=== PATIENT | male | born 1965 | race Caucasian/White ===

== ENCOUNTER 2017-02-08 13:18 | Emergency (ER) | payer MEDICARE ==
[~2017-02-08] VITALS: Ht 182.9 cm; Wt 97.5 kg
[~2017-02-08 13:18] MED LIST: FURO20 PO; GABA-531 PO; LACT30L PO; MAGOX PO; RISP.5 PO; SERT50TA12 PO; TRAZ-147 PO
[2017-02-08] MEDS ORDERED: HYDROCODONE/ACETAMINOPHEN 5-325 MG TABLET PO ONE (19:15)
[2017-02-08 19:45] VITALS: BP 125/84
== END 2017-02-08 21:27 | disposition home or self-care (01) ==
LOC: EMS 13:20
DX: S82.892A Other fracture of left lower leg, initial encounter for closed fracture (principal); S91.012A Laceration without foreign body, left ankle, initial encounter; S80.02XA Contusion of left knee, initial encounter; F17.210 Nicotine dependence, cigarettes, uncomplicated; I10 Essential (primary) hypertension; K21.9 Gastro-esophageal reflux disease without esophagitis; G20 Parkinson's disease; V49.88XA Car occupant (driver) (passenger) injured in other specified transport accidents, initial encounter; Y93.89 Activity, other specified; Y92.89 Other specified places as the place of occurrence of the external cause; Y99.8 Other external cause status
CPT/HCPCS: 29515; 99284; 99406

== ENCOUNTER 2017-07-06 08:19 | Inpatient (IN) | payer MEDICARE ==
[~2017-07-06] VITALS: Ht 182.9 cm; Wt 88.0 kg
[2017-07-06] MEDS ORDERED: LORazepam 2 MG/ML VIAL IM ONE (09:00)
[2017-07-06 09:32] LABS: BASOPHILS # (AUTO) 0.05 K/uL (0.00-0.20); BASOPHILS % (AUTO) 1.5 % (0.0-2.0); EOSINOPHILS # (AUTO) 0.04 K/uL (0.00-0.70); EOSINOPHILS % (AUTO) 1.19 % (1.0-6.0); HEMOGLOBIN 11.4 g/dL (13.5-17.5); MEAN CORPUSCULAR HEMOGLOBIN 31.9 pg (26.0-34.0); MEAN CORPUSCULAR HGB CONC 34.5 G/dL (31.0-37.0); MEAN CORPUSCULAR VOLUME 93 fL (80-100); MONOCYTES # (AUTO) 0.3 K/uL (0.1-1.0); NEUTROPHILS % (AUTO) 59.3 % (40.0-70.0); PLATELET COUNT (AUTO) 84 K/uL (150-450); RED BLOOD CELL COUNT(AUTO) 3.57 MIL/uL (4.50-5.90); RED CELL DISTRIBUTION WIDTH 15.8 % (11.5-14.5); WHITE BLOOD COUNT (AUTO) 3.3 K/uL (4.5-11.0)
[2017-07-06 10:25] LABS: ANION GAP 11 mmol/L (8-16); CALCIUM, TOTAL 8.5 mg/dL (8.8-10.5); CARBON DIOXIDE 22 mmol/L (22-29); CHLORIDE 106 mmol/L (98-107); CREATININE 0.74 mg/dL (0.60-1.30); GLOMERULAR FILTR. RATE CALC > 60 mL/min (>60); POTASSIUM 3.5 mmol/L (3.5-5.1); SODIUM SERUM 139 mmol/L (136-145); UREA NITROGEN, BLOOD 10 mg/dL (7-18)
[2017-07-06 10:31] LABS: ALANINE AMINOTRANSFERASE 14 U/L (12-78); ASPARTATE AMINOTRANSFERASE 19 U/L (15-37); BILIRUBIN,TOTAL 1.2 mg/dL (0.1-1.0); TOTAL PROTEIN, SERUM 7.4 g/dL (6.4-8.2)
[2017-07-06 12:43] LABS: APPEARANCE,URINE CLEAR (CLEAR); GLUCOSE, URINE (UA) NEGATIVE (NEGATIVE); KETONES,URINE NEGATIVE (NEGATIVE); LEUKOCYTE ESTERASE ,URINE NEGATIVE (NEGATIVE); OCCULT BLOOD,URINE MODERATE (NEGATIVE); PROTEIN,URINE NEGATIVE (NEGATIVE)
[2017-07-06] MEDS ORDERED: IBUPROFEN 400 MG TABLET PO ONE (12:45)
[2017-07-06 12:47] LABS: ADD UA MICROSCOPIC YES
[2017-07-06 12:49] LABS: WBC,URINE 0-2 /HPF (0-5)
[2017-07-06 12:50] LABS: SQUAMOUS EPITHELIAL CELL,UR Few /LPF (None Seen)
[2017-07-06 14:15] VITALS: BP 141/85
[2017-07-06 16:07] VITALS: BP 122/66
[2017-07-06 18:42] VITALS: BP 140/82
[2017-07-06] MEDS: IBUPROFEN 600 MG TABLET PO PRN (18:42)
[2017-07-06] MEDS: LORazepam 2 MG TABLET PO PRN ×2 (18:42→23:01)
[2017-07-06] MEDS: ZOLPIDEM TARTRATE 10 MG TABLET PO PRN (22:14)
[2017-07-07] VITALS (7 sets, daily range): BP systolic 133–169; BP diastolic 73–93
[2017-07-07] MEDS: IBUPROFEN 600 MG TABLET PO PRN ×2 (00:59→07:00)
[2017-07-07] MEDS: HALOPERIDOL 5 MG TABLET PO PRN ×2 (01:39→12:33)
[2017-07-07] MEDS: LORazepam 2 MG TABLET PO PRN ×3 (03:14→18:18)
[2017-07-07] MEDS: TraMADol HCL 50 MG TABLET PO PRN ×2 (08:21→18:18)
[2017-07-07] MEDS ORDERED: CloNIDine HCL 0.1 MG TABLET PO ONE (13:15)
[2017-07-07] MEDS: CloNIDine HCL 0.1 MG TABLET PO SCH (18:42)
[2017-07-07] MEDS: TraZODone HCL 100 MG TABLET PO SCH (20:30)
[2017-07-07] MEDS: RisperiDONE 0.5 MG TABLET PO SCH (20:30)
[2017-07-08] VITALS (7 sets, daily range): BP systolic 97–143; BP diastolic 54–79
[2017-07-08] MEDS: IBUPROFEN 600 MG TABLET PO PRN (00:16)
[2017-07-08] MEDS: LORazepam 2 MG TABLET PO PRN (01:41)
[2017-07-08 05:58] LABS: GLUCOSE,POINT OF CARE 73 MG/DL (70-110)
[2017-07-08] MEDS: CloNIDine HCL 0.1 MG TABLET PO SCH ×2 (09:00→16:02)
[2017-07-08] MEDS: SERTRALINE HCL 50 MG TABLET PO SCH (09:22)
[2017-07-08] MEDS: TraMADol HCL 50 MG TABLET PO PRN (16:02)
[2017-07-08] MEDS: TraZODone HCL 100 MG TABLET PO SCH (23:08)
[2017-07-08] MEDS: RisperiDONE 0.5 MG TABLET PO SCH (23:09)
[2017-07-09] VITALS (8 sets, daily range): BP systolic 105–143; BP diastolic 61–80
[2017-07-09] MEDS: LORazepam 2 MG TABLET PO PRN (06:25)
[2017-07-09] MEDS: SERTRALINE HCL 50 MG TABLET PO SCH (09:21)
[2017-07-09] MEDS: CloNIDine HCL 0.1 MG TABLET PO SCH ×2 (09:21→16:24)
[2017-07-09 09:54] LABS: CHOL/HDL RATIO 3.2 (4.2-7.3)
[2017-07-09] MEDS: TraZODone HCL 100 MG TABLET PO SCH (20:32)
[2017-07-09] MEDS: RisperiDONE 0.5 MG TABLET PO SCH (20:32)
[2017-07-09] MEDS: TraMADol HCL 50 MG TABLET PO PRN (21:58)
[2017-07-10 06:15] VITALS: BP 156/83
[2017-07-10] MEDS: TraMADol HCL 50 MG TABLET PO PRN (06:23)
[2017-07-10 08:03] VITALS: BP 133/62
[2017-07-10 08:31] LABS: BASOPHILS % (AUTO) 0.3 % (0.0-2.0); EOSINOPHILS % (AUTO) 2.1 % (1.0-6.0); HEMATOCRIT 36.1 % (41-53); HEMOGLOBIN 12.3 g/dL (13.5-17.5); LYMPHOCYTES # (AUTO) 1.6 K/uL (1.0-4.8); LYMPHOCYTES % (AUTO) 31.9 % (22.0-44.0); MEAN CORPUSCULAR HEMOGLOBIN 32.1 pg (26.0-34.0); MEAN CORPUSCULAR HGB CONC 34.1 G/dL (31.0-37.0); MEAN CORPUSCULAR VOLUME 94 fL (80-100); MONOCYTES # (AUTO) 0.7 K/uL (0.1-1.0); MONOCYTES % (AUTO) 13.6 % (2.0-9.0); NEUTROPHILS # (AUTO) 2.6 K/uL (1.8-7.7); NEUTROPHILS % (AUTO) 52.1 % (40.0-70.0); PLATELET COUNT (AUTO) 120 K/uL (150-450); RED BLOOD CELL COUNT(AUTO) 3.84 MIL/uL (4.50-5.90); RED CELL DISTRIBUTION WIDTH 17.1 % (11.5-14.5)
[2017-07-10 08:37] LABS: RBC MORPHOLOGY COMMENT ABNORMAL RBC MORPH
[2017-07-10] MEDS: SERTRALINE HCL 50 MG TABLET PO SCH (09:04)
[2017-07-10] MEDS: CloNIDine HCL 0.1 MG TABLET PO SCH ×2 (09:04→16:49)
[2017-07-10 09:21] LABS: ALANINE AMINOTRANSFERASE 22 U/L (12-78); ALBUMIN 2.3 g/dL (3.4-5.0); ANION GAP 9 mmol/L (8-16); ASPARTATE AMINOTRANSFERASE 34 U/L (15-37); BILIRUBIN,TOTAL 1.1 mg/dL (0.1-1.0); CALCIUM, TOTAL 8.5 mg/dL (8.8-10.5); CARBON DIOXIDE 23 mmol/L (22-29); CHLORIDE 103 mmol/L (98-107); CREATININE 0.82 mg/dL (0.60-1.30); GLOMERULAR FILTR. RATE CALC > 60 mL/min (>60); POTASSIUM 3.5 mmol/L (3.5-5.1); SODIUM SERUM 135 mmol/L (136-145); TOTAL PROTEIN, SERUM 8.4 g/dL (6.4-8.2); UREA NITROGEN, BLOOD 14 mg/dL (7-18)
[2017-07-10 16:01] VITALS: BP 138/86
[2017-07-10 20:18] VITALS: BP 138/86
[2017-07-10] MEDS: RisperiDONE 0.5 MG TABLET PO SCH (20:56)
[2017-07-10] MEDS: TraZODone HCL 100 MG TABLET PO SCH (20:56)
[2017-07-10] MEDS: ZOLPIDEM TARTRATE 10 MG TABLET PO PRN (21:40)
[2017-07-11 06:08] VITALS: BP 103/60
[2017-07-11] MEDS: TraMADol HCL 50 MG TABLET PO PRN (06:51)
[2017-07-11] MEDS: SERTRALINE HCL 50 MG TABLET PO SCH (08:51)
[2017-07-11] MEDS: CloNIDine HCL 0.1 MG TABLET PO SCH ×2 (08:51→17:00)
[2017-07-11 08:53] VITALS: BP 121/70
[2017-07-11 17:32] VITALS: BP 101/69
[2017-07-11 18:50] VITALS: BP 101/69
[2017-07-11] MEDS: RisperiDONE 0.5 MG TABLET PO SCH (20:35)
[2017-07-11] MEDS: TraZODone HCL 100 MG TABLET PO SCH (20:35)
[2017-07-12 02:53] VITALS: BP 110/73
[2017-07-12 06:40] VITALS: BP 120/65
[2017-07-12 08:26] VITALS: BP 107/64
[2017-07-12] MEDS: CloNIDine HCL 0.1 MG TABLET PO SCH ×2 (08:44→16:39)
[2017-07-12] MEDS: SERTRALINE HCL 50 MG TABLET PO SCH (08:44)
[2017-07-12 16:16] VITALS: BP 135/73
[2017-07-12] MEDS: RisperiDONE 0.5 MG TABLET PO SCH (20:32)
[2017-07-12] MEDS: TraZODone HCL 100 MG TABLET PO SCH (20:32)
[2017-07-13 01:37] VITALS: BP 140/73
[2017-07-13 08:40] VITALS: BP 138/78
[2017-07-13] MEDS: SERTRALINE HCL 50 MG TABLET PO SCH (09:00)
[2017-07-13] MEDS: CloNIDine HCL 0.1 MG TABLET PO SCH ×2 (09:00→16:50)
[2017-07-13 16:01] VITALS: BP 101/61
[2017-07-13] MEDS: TraZODone HCL 100 MG TABLET PO SCH (20:12)
[2017-07-13] MEDS: RisperiDONE 0.5 MG TABLET PO SCH (20:12)
[2017-07-14 05:59] VITALS: BP 139/71
[2017-07-14 08:25] VITALS: BP 124/61
[2017-07-14] MEDS: SERTRALINE HCL 50 MG TABLET PO SCH (09:12)
[2017-07-14] MEDS: CloNIDine HCL 0.1 MG TABLET PO SCH ×2 (09:12→16:16)
[2017-07-14 16:02] VITALS: BP 120/64
[2017-07-14] MEDS: TraMADol HCL 50 MG TABLET PO PRN (16:27)
[2017-07-14] MEDS: RisperiDONE 0.5 MG TABLET PO SCH (21:16)
[2017-07-14] MEDS: TraZODone HCL 100 MG TABLET PO SCH (21:16)
[2017-07-15] VITALS (12 sets, daily range): BP systolic 106–120; BP diastolic 56–81
[2017-07-15] MEDS: SERTRALINE HCL 50 MG TABLET PO SCH (08:34)
[2017-07-15] MEDS: CloNIDine HCL 0.1 MG TABLET PO SCH ×2 (08:34→17:08)
[2017-07-15] MEDS: TraMADol HCL 50 MG TABLET PO PRN ×2 (13:04→20:36)
[2017-07-15] MEDS: RisperiDONE 0.5 MG TABLET PO SCH (20:43)
[2017-07-15] MEDS: TraZODone HCL 100 MG TABLET PO SCH (20:43)
[2017-07-16] VITALS (7 sets, daily range): BP systolic 105–129; BP diastolic 56–66
[2017-07-16] MEDS: IBUPROFEN 600 MG TABLET PO PRN (02:36)
[2017-07-16] MEDS: CloNIDine HCL 0.1 MG TABLET PO SCH ×2 (09:00→17:20)
[2017-07-16] MEDS: SERTRALINE HCL 50 MG TABLET PO SCH (09:06)
[2017-07-16] MEDS: TraMADol HCL 50 MG TABLET PO PRN ×2 (09:31→17:16)
[2017-07-16] MEDS: RisperiDONE 0.5 MG TABLET PO SCH (21:36)
[2017-07-16] MEDS: TraZODone HCL 100 MG TABLET PO SCH (21:36)
[2017-07-17] MEDS: IBUPROFEN 600 MG TABLET PO PRN ×2 (00:21→19:01)
[2017-07-17 00:22] VITALS: BP 121/71
[2017-07-17 08:08] VITALS: BP 98/57
[2017-07-17] MEDS: CloNIDine HCL 0.1 MG TABLET PO SCH ×2 (09:00→16:35)
[2017-07-17] MEDS: SERTRALINE HCL 50 MG TABLET PO SCH (09:02)
[2017-07-17 11:09] VITALS: BP 106/62
[2017-07-17] MEDS: TraMADol HCL 50 MG TABLET PO PRN (11:09)
[2017-07-17 16:10] VITALS: BP 128/68
[2017-07-17 18:00] VITALS: BP 128/68
[2017-07-17 19:01] VITALS: BP 136/64
[2017-07-17] MEDS: TraZODone HCL 100 MG TABLET PO SCH (20:33)
[2017-07-17] MEDS: RisperiDONE 0.5 MG TABLET PO SCH (20:33)
[2017-07-18] VITALS (8 sets, daily range): BP systolic 105–140; BP diastolic 58–68
[2017-07-18] MEDS: IBUPROFEN 600 MG TABLET PO PRN (06:54)
[2017-07-18] MEDS: CloNIDine HCL 0.1 MG TABLET PO SCH ×2 (09:00→17:23)
[2017-07-18] MEDS: SERTRALINE HCL 50 MG TABLET PO SCH (09:29)
[2017-07-18] MEDS: TraMADol HCL 50 MG TABLET PO PRN (13:16)
[2017-07-18] MEDS: TraZODone HCL 100 MG TABLET PO SCH (20:31)
[2017-07-18] MEDS: RisperiDONE 0.5 MG TABLET PO SCH (20:31)
[2017-07-19 00:09] VITALS: BP 139/82
[2017-07-19 00:45] VITALS: BP 140/78
[2017-07-19] MEDS: IBUPROFEN 600 MG TABLET PO PRN (00:50)
[2017-07-19 08:23] VITALS: BP 103/59
[2017-07-19] MEDS: CloNIDine HCL 0.1 MG TABLET PO SCH ×2 (08:23→16:30)
[2017-07-19] MEDS: SERTRALINE HCL 50 MG TABLET PO SCH (08:24)
[2017-07-19 13:47] VITALS: BP 115/70
[2017-07-19] MEDS: TraMADol HCL 50 MG TABLET PO PRN (13:47)
[2017-07-19 16:17] VITALS: BP 129/79
[2017-07-19] MEDS: TraZODone HCL 100 MG TABLET PO SCH (20:15)
[2017-07-19] MEDS: RisperiDONE 0.5 MG TABLET PO SCH (20:15)
[2017-07-20] VITALS: BP 119/69
[2017-07-20 08:32] VITALS: BP 116/63
[2017-07-20] MEDS: CloNIDine HCL 0.1 MG TABLET PO SCH ×2 (08:39→17:00)
[2017-07-20] MEDS: SERTRALINE HCL 50 MG TABLET PO SCH (08:39)
[2017-07-20 10:02] VITALS: BP 112/64
[2017-07-20] MEDS: TraMADol HCL 50 MG TABLET PO PRN (10:02)
[2017-07-20 16:10] VITALS: BP 100/59
[2017-07-20 17:50] VITALS: BP 117/67
[2017-07-20] MEDS: IBUPROFEN 600 MG TABLET PO PRN (17:53)
[2017-07-20] MEDS: TraZODone HCL 100 MG TABLET PO SCH (20:34)
[2017-07-20] MEDS: RisperiDONE 1 MG TABLET PO SCH (20:34)
[2017-07-21 05:22] VITALS: BP 113/67
[2017-07-21 08:20] VITALS: BP 113/62
[2017-07-21] MEDS: CloNIDine HCL 0.1 MG TABLET PO SCH ×2 (08:21→16:37)
[2017-07-21] MEDS: SERTRALINE HCL 100 MG TABLET PO SCH (08:21)
[2017-07-21] MEDS: IBUPROFEN 600 MG TABLET PO PRN ×2 (08:21→14:45)
[2017-07-21 14:43] VITALS: BP 107/64
[2017-07-21 16:14] VITALS: BP 132/77
[2017-07-21] MEDS: TraZODone HCL 100 MG TABLET PO SCH (20:34)
[2017-07-21] MEDS: RisperiDONE 1 MG TABLET PO SCH (20:34)
[2017-07-22 02:13] VITALS: BP 134/78
[2017-07-22] MEDS: LORazepam 2 MG TABLET PO PRN (02:16)
[2017-07-22] MEDS: IBUPROFEN 600 MG TABLET PO PRN ×3 (02:16→20:44)
[2017-07-22 08:28] VITALS: BP 134/72
[2017-07-22] MEDS: SERTRALINE HCL 100 MG TABLET PO SCH (08:42)
[2017-07-22] MEDS: CloNIDine HCL 0.1 MG TABLET PO SCH ×2 (08:42→16:28)
[2017-07-22 12:45] VITALS: BP 115/67
[2017-07-22 16:03] VITALS: BP 117/71
[2017-07-22] MEDS: RisperiDONE 1 MG TABLET PO SCH (20:40)
[2017-07-22] MEDS: TraZODone HCL 100 MG TABLET PO SCH (20:40)
[2017-07-22 20:44] VITALS: BP 114/72
[2017-07-23 01:51] VITALS: BP 117/76
[2017-07-23 06:22] VITALS: BP 120/72
[2017-07-23] MEDS: IBUPROFEN 600 MG TABLET PO PRN ×3 (06:40→20:52)
[2017-07-23 08:29] VITALS: BP 100/60
[2017-07-23] MEDS: CloNIDine HCL 0.1 MG TABLET PO SCH ×2 (09:00→16:48)
[2017-07-23] MEDS: SERTRALINE HCL 100 MG TABLET PO SCH (09:07)
[2017-07-23] MEDS ORDERED: TRAZ300T2 PO (10:37)
[2017-07-23] MEDS ORDERED: SERT100T12 PO (10:37)
[2017-07-23] MEDS ORDERED: CLON0.1T PO (10:37)
[2017-07-23] MEDS ORDERED: RISP1TAB89 PO (10:37)
[2017-07-23 12:56] VITALS: BP 110/64
[2017-07-23 16:04] VITALS: BP 116/62
[2017-07-23] MEDS: RisperiDONE 1 MG TABLET PO SCH (20:51)
[2017-07-23] MEDS: TraZODone HCL 100 MG TABLET PO SCH (20:51)
[2017-07-23 20:52] VITALS: BP 114/70
[2017-07-24 05:32] VITALS: BP 120/73
[2017-07-24] MEDS: IBUPROFEN 600 MG TABLET PO PRN ×2 (05:39→12:33)
[2017-07-24] MEDS: CloNIDine HCL 0.1 MG TABLET PO SCH ×2 (09:00→16:48)
[2017-07-24 09:20] VITALS: BP 102/64
[2017-07-24] MEDS: SERTRALINE HCL 100 MG TABLET PO SCH (09:21)
[2017-07-24 12:33] VITALS: BP 106/68
[2017-07-24 16:09] VITALS: BP 125/82
[2017-07-24] MEDS: LORazepam 2 MG TABLET PO PRN (17:51)
[2017-07-24] MEDS: RisperiDONE 1 MG TABLET PO SCH (20:50)
[2017-07-24] MEDS: TraZODone HCL 100 MG TABLET PO SCH (20:50)
[2017-07-25] MEDS: IBUPROFEN 600 MG TABLET PO PRN ×2 (00:02→08:04)
[2017-07-25 00:16] VITALS: BP 126/81
[2017-07-25 08:01] VITALS: BP 112/67
[2017-07-25] MEDS: CloNIDine HCL 0.1 MG TABLET PO SCH (08:03)
[2017-07-25] MEDS: SERTRALINE HCL 100 MG TABLET PO SCH (08:03)
== END 2017-07-25 13:00 | disposition home or self-care (01) | DRG 885 ==
LOC: EMS 08:20 → B2X 12:54
PROVIDERS: ADMIT Psychiatry & Neurology Psychiatry; ATTEND Psychiatry & Neurology Child & Adolescent Psychiatry
DX: F31.5 Bipolar disorder, current episode depressed, severe, with psychotic features (principal); B19.20 Unspecified viral hepatitis C without hepatic coma; G20 Parkinson's disease; R45.851 Suicidal ideations; F10.239 Alcohol dependence with withdrawal, unspecified; K74.60 Unspecified cirrhosis of liver; D72.819 Decreased white blood cell count, unspecified; F29 Unspecified psychosis not due to a substance or known physiological condition; I10 Essential (primary) hypertension; F17.210 Nicotine dependence, cigarettes, uncomplicated; Y90.9 Presence of alcohol in blood, level not specified; F41.9 Anxiety disorder, unspecified; D64.9 Anemia, unspecified; R45.87 Impulsiveness; J44.9 Chronic obstructive pulmonary disease, unspecified; K21.9 Gastro-esophageal reflux disease without esophagitis; Z79.899 Other long term (current) drug therapy; Z91.81 History of falling; Z91.19 Patient's noncompliance with other medical treatment and regimen
CPT/HCPCS: 82962; 93005; 96374; 99285; G0480; J2060

== ENCOUNTER 2017-07-08 19:59 | Emergency (ER) | payer MEDICARE ==
[~2017-07-08] VITALS: Ht 182.9 cm; Wt 90.9 kg
[~2017-07-08 19:59] MED LIST changes: -TRAZ-147 PO
[2017-07-08] MEDS ORDERED: IBUPROFEN 600 MG TABLET PO ONE (20:15)
[2017-07-08 21:58] VITALS: BP 130/77
== END 2017-07-08 22:32 | disposition other institution (70) ==
LOC: EMS 20:03
DX: S09.90XA Unspecified injury of head, initial encounter (principal); F31.9 Bipolar disorder, unspecified; G20 Parkinson's disease; I10 Essential (primary) hypertension; K21.9 Gastro-esophageal reflux disease without esophagitis; D61.818 Other pancytopenia; F17.210 Nicotine dependence, cigarettes, uncomplicated; E83.42 Hypomagnesemia; W19.XXXA Unspecified fall, initial encounter; Y93.89 Activity, other specified; Y92.89 Other specified places as the place of occurrence of the external cause; Y99.8 Other external cause status
CPT/HCPCS: 70450; 72125; 99285

== ENCOUNTER 2017-09-22 20:01 | Inpatient (IN) | payer MEDICARE ==
[~2017-09-22] VITALS: Ht 177.8 cm; Wt 86.1 kg
[~2017-09-22 20:01] MED LIST changes: +CLON0.1T PO; -FURO20 PO; -GABA-531 PO; -LACT30L PO; -MAGOX PO; -RISP.5 PO; +RISP1TAB89 PO; +SERT100T12 PO; -SERT50TA12 PO; +TRAZ300T2 PO
[2017-09-22] MEDS ORDERED: MAGNESIUM SULFATE 2 GM, MVI, ADULT NO.1 WITH VIT K 10 ML, THIAMINE HCL 100 MG, FOLIC AC... IV ONE ×5 (20:15)
[2017-09-22 20:22] LABS: GLUCOSE,POINT OF CARE 99 MG/DL (70-110)
[2017-09-22 22:53] LABS: BASOPHILS % (AUTO) 0.2 % (0.0-2.0); EOSINOPHILS % (AUTO) 1.3 % (1.0-6.0); HEMATOCRIT 37.1 % (41-53); HEMOGLOBIN 12.9 g/dL (13.5-17.5); LYMPHOCYTES # (AUTO) 2.9 K/uL (1.0-4.8); LYMPHOCYTES % (AUTO) 38.7 % (22.0-44.0); MEAN CORPUSCULAR HEMOGLOBIN 31.9 pg (26.0-34.0); MEAN CORPUSCULAR HGB CONC 34.7 G/dL (31.0-37.0); MEAN CORPUSCULAR VOLUME 92 fL (80-100); MONOCYTES # (AUTO) 0.5 K/uL (0.1-1.0); MONOCYTES % (AUTO) 6.4 % (2.0-9.0); NEUTROPHILS % (AUTO) 53.4 % (40.0-70.0); PLATELET COUNT (AUTO) 108 K/uL (150-450); RED BLOOD CELL COUNT(AUTO) 4.03 MIL/uL (4.50-5.90); RED CELL DISTRIBUTION WIDTH 15.8 % (11.5-14.5); WHITE BLOOD COUNT (AUTO) 7.5 K/uL (4.5-11.0)
[2017-09-22 23:15] LABS: ANION GAP 13 mmol/L (8-16); CALCIUM, TOTAL 8.4 mg/dL (8.8-10.5); CARBON DIOXIDE 23 mmol/L (22-29); CHLORIDE 108 mmol/L (98-107); CREATININE 0.83 mg/dL (0.60-1.30); GLOMERULAR FILTR. RATE CALC > 60 mL/min (>60); POTASSIUM 3.3 mmol/L (3.5-5.1); SODIUM SERUM 144 mmol/L (136-145); UREA NITROGEN, BLOOD 12 mg/dL (7-18)
[2017-09-22 23:21] LABS: ALANINE AMINOTRANSFERASE 25 U/L (12-78); ALBUMIN 2.6 g/dL (3.4-5.0); ASPARTATE AMINOTRANSFERASE 32 U/L (15-37); BILIRUBIN,TOTAL 0.9 mg/dL (0.1-1.0); TOTAL PROTEIN, SERUM 8.9 g/dL (6.4-8.2)
[2017-09-23] VITALS (10 sets, daily range): BP systolic 117–146; BP diastolic 68–84
[2017-09-23] MEDS ORDERED: LORazepam 2 MG/ML VIAL IM ONE (01:45)
[2017-09-23] MEDS ORDERED: ZOLPIDEM TARTRATE 10 MG TABLET PO PRN (02:00)
[2017-09-23] MEDS ORDERED: LOPERAMIDE HCL 2 MG CAPSULE PO PRN ×2 (02:00)
[2017-09-23] MEDS ORDERED: MAGNESIUM HYDROXIDE SUSPENSION 30 ML UDCUP PO PRN (02:00)
[2017-09-23] MEDS ORDERED: POTASSIUM CHLORIDE 10% 40 MEQ/30 ML LIQUID UDCUP PO ONE (02:00)
[2017-09-23] MEDS ORDERED: MAG HYDROX/AL HYDROX/SIMETH ES 30 ML SUSPENSION UDCUP PO PRN (02:00)
[2017-09-23] MEDS ORDERED: HydrOXYzine PAMOATE 50 MG CAPSULE PO PRN (02:00)
[2017-09-23] MEDS ORDERED: CYANOCOBALAMIN 1,000 MCG/ML VIAL IM ONE (02:00)
[2017-09-23] MEDS ORDERED: GuaiFENesin/D-METHORPHAN [SUGAR-FREE] 200-20MG/10 ML SYRUP UDCUP PO PRN (02:00)
[2017-09-23] MEDS ORDERED: LORazepam 2 MG TABLET PO PRN (02:00)
[2017-09-23] MEDS ORDERED: PROMETHAZINE HCL 25 MG TABLET PO PRN (02:00)
[2017-09-23] MEDS ORDERED: HALOPERIDOL 5 MG TABLET PO PRN (02:00)
[2017-09-23] MEDS ORDERED: INFLUENZA VIRUS VACCINE QVS 2017-18 (3YR+)/PF 60 MCG/0.5 ML SYRINGE IM ONE (05:15)
[2017-09-23] MEDS: THIAMINE HCL 100 MG TABLET PO SCH ×2 (08:25→16:39)
[2017-09-23] MEDS: MULTIVITAMINS WITH MINERALS, THERAPEUTIC TABLET PO SCH (08:25)
[2017-09-23] MEDS: FOLIC ACID 1 MG TABLET PO SCH (08:26)
[2017-09-23] MEDS: LORazepam 2 MG TABLET PO PRN (18:57)
[2017-09-24] VITALS (7 sets, daily range): BP systolic 99–133; BP diastolic 70–81
[2017-09-24] MEDS ORDERED: LORazepam 2 MG TABLET PO PRN (07:00)
[2017-09-24 07:08] LABS: CHOL/HDL RATIO 2.5 (4.2-7.3); POTASSIUM 3.5 mmol/L (3.5-5.1)
[2017-09-24] MEDS: GABAPENTIN 300 MG CAPSULE PO SCH ×3 (08:31→16:37)
[2017-09-24] MEDS: FOLIC ACID 1 MG TABLET PO SCH (08:31)
[2017-09-24] MEDS: LORazepam 2 MG TABLET PO SCH ×4 (08:31→20:58)
[2017-09-24] MEDS: THIAMINE HCL 100 MG TABLET PO SCH ×2 (08:31→16:36)
[2017-09-24] MEDS: MULTIVITAMINS WITH MINERALS, THERAPEUTIC TABLET PO SCH (08:31)
[2017-09-24] MEDS: MIRTAZAPINE 15 MG TABLET PO SCH (20:59)
[2017-09-25] VITALS (8 sets, daily range): BP systolic 114–138; BP diastolic 71–87
[2017-09-25] MEDS: FOLIC ACID 1 MG TABLET PO SCH (08:24)
[2017-09-25] MEDS: LORazepam 2 MG TABLET PO SCH ×4 (08:24→20:14)
[2017-09-25] MEDS: MULTIVITAMINS WITH MINERALS, THERAPEUTIC TABLET PO SCH (08:25)
[2017-09-25] MEDS: THIAMINE HCL 100 MG TABLET PO SCH ×2 (08:25→16:52)
[2017-09-25] MEDS: GABAPENTIN 300 MG CAPSULE PO SCH ×3 (08:25→16:52)
[2017-09-25] MEDS: MIRTAZAPINE 15 MG TABLET PO SCH (20:14)
[2017-09-25] MEDS: ACETAMINOPHEN 325 MG TABLET PO PRN (20:48)
[2017-09-26 06:14] VITALS: BP 115/71
[2017-09-26] MEDS ORDERED: LORazepam 1 MG TABLET PO PRN (07:00)
[2017-09-26] MEDS: LORazepam 1 MG TABLET PO SCH ×4 (08:21→20:35)
[2017-09-26] MEDS: MULTIVITAMINS WITH MINERALS, THERAPEUTIC TABLET PO SCH (08:22)
[2017-09-26] MEDS: FOLIC ACID 1 MG TABLET PO SCH (08:23)
[2017-09-26] MEDS: THIAMINE HCL 100 MG TABLET PO SCH ×2 (08:23→15:59)
[2017-09-26] MEDS: GABAPENTIN 300 MG CAPSULE PO SCH ×3 (08:23→16:00)
[2017-09-26 08:27] VITALS: BP 136/87
[2017-09-26 08:33] VITALS: BP 136/87
[2017-09-26 16:14] VITALS: BP 129/82
[2017-09-26 16:19] VITALS: BP 129/82
[2017-09-26] MEDS: MIRTAZAPINE 30 MG TABLET PO SCH (20:34)
[2017-09-26 21:11] VITALS: BP 123/83
[2017-09-27 00:55] VITALS: BP 144/79
[2017-09-27] MEDS: ACETAMINOPHEN 325 MG TABLET PO PRN (00:57)
[2017-09-27] MEDS: THIAMINE HCL 100 MG TABLET PO SCH ×2 (08:24→16:19)
[2017-09-27] MEDS: FOLIC ACID 1 MG TABLET PO SCH (08:24)
[2017-09-27] MEDS: MULTIVITAMINS WITH MINERALS, THERAPEUTIC TABLET PO SCH (08:24)
[2017-09-27 09:03] VITALS: BP 113/57
[2017-09-27 09:10] VITALS: BP 113/56
[2017-09-27 16:13] VITALS: BP 128/72
[2017-09-27] MEDS: LORazepam 1 MG TABLET PO PRN ×2 (16:19→20:14)
[2017-09-27] MEDS: MIRTAZAPINE 30 MG TABLET PO SCH (20:14)
[2017-09-28 00:52] VITALS: BP 133/75
[2017-09-28 00:57] VITALS: BP 133/75
[2017-09-28] MEDS: LORazepam 2 MG TABLET PO PRN (01:54)
[2017-09-28] MEDS: MULTIVITAMINS WITH MINERALS, THERAPEUTIC TABLET PO SCH (09:02)
[2017-09-28] MEDS: THIAMINE HCL 100 MG TABLET PO SCH ×2 (09:02→16:48)
[2017-09-28] MEDS: FOLIC ACID 1 MG TABLET PO SCH (09:03)
[2017-09-28 12:57] VITALS: BP 138/85
[2017-09-28] MEDS: ACETAMINOPHEN 325 MG TABLET PO PRN (12:57)
[2017-09-28 18:05] VITALS: BP 145/88
[2017-09-28 18:09] VITALS: BP 145/88
== END 2017-09-28 19:45 | disposition short-term general hospital (02) | DRG 885 ==
LOC: EMS 20:04 → 3EX 09-23 02:59
PROVIDERS: ADMIT Psychiatry & Neurology Psychiatry; ATTEND Psychiatry & Neurology Psychiatry
PROC: 3E0234Z Introduction of Serum, Toxoid and Vaccine into Muscle, Percutaneous Approach (ICD-10-PCS; principal; 2017-09-23)
DX: F33.3 Major depressive disorder, recurrent, severe with psychotic symptoms (principal); M86.9 Osteomyelitis, unspecified; B18.2 Chronic viral hepatitis C; F10.229 Alcohol dependence with intoxication, unspecified; D69.6 Thrombocytopenia, unspecified; G20 Parkinson's disease; S00.03XA Contusion of scalp, initial encounter; D64.9 Anemia, unspecified; R45.851 Suicidal ideations; W19.XXXA Unspecified fall, initial encounter; E87.6 Hypokalemia; F41.9 Anxiety disorder, unspecified; I10 Essential (primary) hypertension; J44.9 Chronic obstructive pulmonary disease, unspecified; K21.9 Gastro-esophageal reflux disease without esophagitis; K74.60 Unspecified cirrhosis of liver; F12.10 Cannabis abuse, uncomplicated; F17.210 Nicotine dependence, cigarettes, uncomplicated; S80.212A Abrasion, left knee, initial encounter; S80.211A Abrasion, right knee, initial encounter; Y90.7 Blood alcohol level of 200-239 mg/100 ml; Z71.6 Tobacco abuse counseling; Z90.49 Acquired absence of other specified parts of digestive tract; Z79.899 Other long term (current) drug therapy; Y92.89 Other specified places as the place of occurrence of the external cause; Y93.89 Activity, other specified; Y99.8 Other external cause status; Z23 Encounter for immunization
CPT/HCPCS: 70450; 82962; 84132; 96365; 96366; 96372; 99285; G0480; J2060; J3411; J3420; J3475; J3490; J7030

== ENCOUNTER 2017-09-28 20:10 | Inpatient (IN) | payer MEDICARE ==
[~2017-09-28] VITALS: Ht 182.9 cm; Wt 82.5 kg
[2017-09-28 20:30] VITALS: BP 132/77
[2017-09-28] MEDS ORDERED: MAGNESIUM HYDROXIDE SUSPENSION 30 ML UDCUP PO PRN (22:00)
[2017-09-28] MEDS ORDERED: PROMETHAZINE HCL 25 MG TABLET PO PRN (22:00)
[2017-09-28] MEDS ORDERED: LOPERAMIDE HCL 2 MG CAPSULE PO PRN (22:00)
[2017-09-28] MEDS ORDERED: ACETAMINOPHEN 325 MG TABLET PO PRN (22:00)
[2017-09-28] MEDS ORDERED: VANCOMYCIN HCL 1.5 GM in DEXTROSE 5%-WATER 250 ML IV ONE (22:00)
[2017-09-28] MEDS ORDERED: LORazepam 2 MG TABLET PO PRN (22:00)
[2017-09-28] MEDS ORDERED: GuaiFENesin/D-METHORPHAN [SUGAR-FREE] 200-20MG/10 ML SYRUP UDCUP PO PRN (22:00)
[2017-09-28] MEDS ORDERED: SODIUM CHLORIDE 0.9% 0 ML IV ONE (23:07)
[2017-09-28] MEDS: HYDROCODONE/ACETAMINOPHEN 5-325 MG TABLET PO PRN (23:25)
[2017-09-28] MEDS: MIRTAZAPINE 30 MG TABLET PO SCH (23:29)
[2017-09-28 23:36] VITALS: BP 145/86
[2017-09-29 04:17] VITALS: BP 127/76
[2017-09-29] MEDS ORDERED: INFLUENZA VIRUS VACCINE QVS 2017-18 (3YR+)/PF 60 MCG/0.5 ML SYRINGE IM ONE (07:00)
[2017-09-29 07:31] LABS: BASOPHILS # (AUTO) 0.01 K/uL (0.00-0.20); BASOPHILS % (AUTO) 0.1 % (0.0-2.0); EOSINOPHILS # (AUTO) 0.39 K/uL (0.00-0.70); EOSINOPHILS % (AUTO) 5.68 % (1.0-6.0); HEMATOCRIT 38.8 % (41-53); HEMOGLOBIN 13.2 g/dL (13.5-17.5); LYMPHOCYTES # (AUTO) 2.9 K/uL (1.0-4.8); LYMPHOCYTES % (AUTO) 42.2 % (22.0-44.0); MEAN CORPUSCULAR HEMOGLOBIN 31.9 pg (26.0-34.0); MEAN CORPUSCULAR HGB CONC 33.9 G/dL (31.0-37.0); MEAN CORPUSCULAR VOLUME 94 fL (80-100); MONOCYTES # (AUTO) 0.5 K/uL (0.1-1.0); MONOCYTES % (AUTO) 7.6 % (2.0-9.0); NEUTROPHILS % (AUTO) 44.4 % (40.0-70.0); PLATELET COUNT (AUTO) 105 K/uL (150-450); RED BLOOD CELL COUNT(AUTO) 4.12 MIL/uL (4.50-5.90); RED CELL DISTRIBUTION WIDTH 17.5 % (11.5-14.5)
[2017-09-29 07:45] LABS: ALANINE AMINOTRANSFERASE 20 U/L (12-78); ALBUMIN 2.6 g/dL (3.4-5.0); ALKALINE PHOSPHATASE 120 U/L (46-116); ANION GAP 9 mmol/L (8-16); ASPARTATE AMINOTRANSFERASE 22 U/L (15-37); BILIRUBIN,TOTAL 1.2 mg/dL (0.1-1.0); CALCIUM, TOTAL 8.8 mg/dL (8.8-10.5); CARBON DIOXIDE 25 mmol/L (22-29); CHLORIDE 105 mmol/L (98-107); CREATININE 0.88 mg/dL (0.60-1.30); GLOMERULAR FILTR. RATE CALC > 60 mL/min (>60); GLUCOSE,RANDOM 89 mg/dL (70-110); POTASSIUM 3.3 mmol/L (3.5-5.1); SODIUM SERUM 139 mmol/L (136-145); TOTAL PROTEIN, SERUM 8.7 g/dL (6.4-8.2); UREA NITROGEN, BLOOD 24 mg/dL (7-18)
[2017-09-29 07:47] VITALS: BP 123/72
[2017-09-29] MEDS: MULTIVITAMINS WITH MINERALS, THERAPEUTIC TABLET PO SCH (08:01)
[2017-09-29] MEDS: FOLIC ACID 1 MG TABLET PO SCH (08:01)
[2017-09-29 08:07] LABS: C-REACTIVE PROTEIN QUANT 1.36 mg/dL (0.00-0.30)
[2017-09-29] MEDS ORDERED: VANCOMYCIN HCL 1 GM/D5% WATER 200 ML IV ONE (09:00)
[2017-09-29 11:30] VITALS: BP 130/77
[2017-09-29] MEDS: HYDROCODONE/ACETAMINOPHEN 5-325 MG TABLET PO PRN ×3 (11:37→20:22)
[2017-09-29] MEDS ORDERED: POTASSIUM CHL 10 MEQ/WATER 50 ML IV PRN (15:00)
[2017-09-29 16:34] VITALS: BP 112/62
[2017-09-29] MEDS: POTASSIUM CHLORIDE 20 MEQ ER TABLET PO PRN (17:17)
[2017-09-29 19:22] VITALS: BP 131/58
[2017-09-29] MEDS: MIRTAZAPINE 30 MG TABLET PO SCH (20:21)
[2017-09-29] MEDS: THIAMINE HCL 100 MG TABLET PO SCH (20:22)
[2017-09-29 23:16] VITALS: BP 136/75
[2017-09-30] MEDS: VANCOMYCIN HCL 1 GM/D5% WATER 200 ML IV SCH ×4 (00:19→22:10)
[2017-09-30] MEDS: HYDROCODONE/ACETAMINOPHEN 5-325 MG TABLET PO PRN ×4 (03:19→22:10)
[2017-09-30 04:34] VITALS: BP 126/78
[2017-09-30 06:34] LABS: ANION GAP 7 mmol/L (8-16); CALCIUM, TOTAL 8.5 mg/dL (8.8-10.5); CARBON DIOXIDE 24 mmol/L (22-29); CHLORIDE 108 mmol/L (98-107); CREATININE 0.92 mg/dL (0.60-1.30); GLOMERULAR FILTR. RATE CALC > 60 mL/min (>60); GLUCOSE,RANDOM 87 mg/dL (70-110); POTASSIUM 3.6 mmol/L (3.5-5.1); SODIUM SERUM 139 mmol/L (136-145); UREA NITROGEN, BLOOD 15 mg/dL (7-18)
[2017-09-30 07:19] VITALS: BP 130/77
[2017-09-30] MEDS: THIAMINE HCL 100 MG TABLET PO SCH ×2 (08:49→20:28)
[2017-09-30] MEDS: FOLIC ACID 1 MG TABLET PO SCH (08:49)
[2017-09-30] MEDS: MULTIVITAMINS WITH MINERALS, THERAPEUTIC TABLET PO SCH (08:49)
[2017-09-30 11:42] VITALS: BP 117/64
[2017-09-30 15:59] VITALS: BP 115/80
[2017-09-30 19:10] VITALS: BP 141/82
[2017-09-30] MEDS: ZOLPIDEM TARTRATE 10 MG TABLET PO PRN (20:28)
[2017-09-30] MEDS: MIRTAZAPINE 30 MG TABLET PO SCH (20:28)
[2017-09-30 23:38] VITALS: BP 149/90
[2017-10-01 04:01] VITALS: BP 141/57
[2017-10-01 06:54] LABS: ANION GAP 7 mmol/L (8-16); CARBON DIOXIDE 27 mmol/L (22-29); CHLORIDE 105 mmol/L (98-107); GLOMERULAR FILTR. RATE CALC > 60 mL/min (>60); GLUCOSE,RANDOM 98 mg/dL (70-110); POTASSIUM 3.8 mmol/L (3.5-5.1); SODIUM SERUM 139 mmol/L (136-145); UREA NITROGEN, BLOOD 11 mg/dL (7-18)
[2017-10-01 07:56] LABS: VANCOMYCIN,RANDOM 20.6 mcg/mL (25.0-50.0)
[2017-10-01] MEDS ORDERED: GADOBUTROL 1 MMOL/ML 10 ML VIAL IVP ONE (08:51)
[2017-10-01 09:00] VITALS: BP 127/60
[2017-10-01] MEDS: MULTIVITAMINS WITH MINERALS, THERAPEUTIC TABLET PO SCH (09:07)
[2017-10-01] MEDS: THIAMINE HCL 100 MG TABLET PO SCH ×2 (09:07→20:40)
[2017-10-01] MEDS: FOLIC ACID 1 MG TABLET PO SCH (09:07)
[2017-10-01] MEDS: VANCOMYCIN HCL 1 GM/D5% WATER 200 ML IV SCH ×3 (09:07→23:46)
[2017-10-01] MEDS: HYDROCODONE/ACETAMINOPHEN 5-325 MG TABLET PO PRN ×3 (09:13→20:40)
[2017-10-01 11:53] VITALS: BP 127/70
[2017-10-01 15:30] VITALS: BP 131/76
[2017-10-01] MEDS ORDERED: SODIUM CHLORIDE 0.9% 250 ML IV ONE (16:56)
[2017-10-01 19:14] VITALS: BP 133/77
[2017-10-01] MEDS: MIRTAZAPINE 30 MG TABLET PO SCH (20:40)
[2017-10-01] MEDS: ZOLPIDEM TARTRATE 10 MG TABLET PO PRN (23:48)
[2017-10-02] VITALS (7 sets, daily range): BP systolic 115–136; BP diastolic 66–77
[2017-10-02] MEDS: HYDROCODONE/ACETAMINOPHEN 5-325 MG TABLET PO PRN ×3 (06:27→20:44)
[2017-10-02 06:53] LABS: ANION GAP 8 mmol/L (8-16); CALCIUM, TOTAL 8.9 mg/dL (8.8-10.5); CARBON DIOXIDE 25 mmol/L (22-29); CHLORIDE 106 mmol/L (98-107); CREATININE 0.72 mg/dL (0.60-1.30); GLOMERULAR FILTR. RATE CALC > 60 mL/min (>60); GLUCOSE,RANDOM 108 mg/dL (70-110); POTASSIUM 3.5 mmol/L (3.5-5.1); SODIUM SERUM 139 mmol/L (136-145); UREA NITROGEN, BLOOD 11 mg/dL (7-18)
[2017-10-02] MEDS: VANCOMYCIN HCL 1 GM/D5% WATER 200 ML IV SCH ×3 (08:52→23:34)
[2017-10-02] MEDS: FOLIC ACID 1 MG TABLET PO SCH (09:09)
[2017-10-02] MEDS: MULTIVITAMINS WITH MINERALS, THERAPEUTIC TABLET PO SCH (09:09)
[2017-10-02] MEDS: THIAMINE HCL 100 MG TABLET PO SCH ×2 (09:09→20:39)
[2017-10-02] MEDS ORDERED: SODIUM CHLORIDE 0.9% 250 ML IV ONE (11:38)
[2017-10-02] MEDS: MIRTAZAPINE 30 MG TABLET PO SCH (20:39)
[2017-10-03] VITALS (7 sets, daily range): BP systolic 107–165; BP diastolic 55–88
[2017-10-03] MEDS: HYDROCODONE/ACETAMINOPHEN 5-325 MG TABLET PO PRN ×3 (06:19→22:40)
[2017-10-03 07:18] LABS: ANION GAP 10 mmol/L (8-16); CALCIUM, TOTAL 8.9 mg/dL (8.8-10.5); CARBON DIOXIDE 21 mmol/L (22-29); CHLORIDE 110 mmol/L (98-107); CREATININE 0.71 mg/dL (0.60-1.30); GLOMERULAR FILTR. RATE CALC > 60 mL/min (>60); GLUCOSE,RANDOM 92 mg/dL (70-110); POTASSIUM 4.8 mmol/L (3.5-5.1); SODIUM SERUM 141 mmol/L (136-145); UREA NITROGEN, BLOOD 12 mg/dL (7-18)
[2017-10-03] MEDS: THIAMINE HCL 100 MG TABLET PO SCH ×2 (08:28→20:59)
[2017-10-03] MEDS: VANCOMYCIN HCL 1 GM/D5% WATER 200 ML IV SCH ×2 (08:28→16:21)
[2017-10-03] MEDS: MULTIVITAMINS WITH MINERALS, THERAPEUTIC TABLET PO SCH (08:28)
[2017-10-03] MEDS: FOLIC ACID 1 MG TABLET PO SCH (08:28)
[2017-10-03] MEDS ORDERED: CloNIDine HCL 0.1 MG TABLET PO PRN ×2 (18:15→21:00)
[2017-10-03] MEDS ORDERED: MAGNESIUM SULFATE 2 GM, MVI, ADULT NO.1 WITH VIT K 10 ML, THIAMINE HCL 100 MG, FOLIC AC... IV ONE ×5 (19:00)
[2017-10-03] MEDS: MIRTAZAPINE 30 MG TABLET PO SCH (20:59)
[2017-10-03] MEDS: METOPROLOL TARTRATE 25 MG TABLET PO SCH (20:59)
[2017-10-04 05:25] VITALS: BP 126/75
[2017-10-04 07:26] LABS: ANION GAP 5 mmol/L (8-16); C-REACTIVE PROTEIN QUANT 0.66 mg/dL (0.00-0.30); CALCIUM, TOTAL 8.5 mg/dL (8.8-10.5); CARBON DIOXIDE 26 mmol/L (22-29); CHLORIDE 111 mmol/L (98-107); CREATININE 0.92 mg/dL (0.60-1.30); GLOMERULAR FILTR. RATE CALC > 60 mL/min (>60); GLUCOSE,RANDOM 96 mg/dL (70-110); POTASSIUM 3.6 mmol/L (3.5-5.1); SODIUM SERUM 142 mmol/L (136-145); UREA NITROGEN, BLOOD 15 mg/dL (7-18); VANCOMYCIN,RANDOM 9.4 mcg/mL (25.0-50.0)
[2017-10-04 07:35] VITALS: BP 105/52
[2017-10-04] MEDS: VANCOMYCIN HCL 1 GM/D5% WATER 200 ML IV SCH ×4 (08:00→23:17)
[2017-10-04] MEDS: FOLIC ACID 1 MG TABLET PO SCH (08:19)
[2017-10-04] MEDS: HYDROCODONE/ACETAMINOPHEN 5-325 MG TABLET PO PRN ×2 (08:19→19:41)
[2017-10-04] MEDS: MULTIVITAMINS WITH MINERALS, THERAPEUTIC TABLET PO SCH (08:19)
[2017-10-04] MEDS: THIAMINE HCL 100 MG TABLET PO SCH ×2 (08:20→19:42)
[2017-10-04] MEDS: METOPROLOL TARTRATE 25 MG TABLET PO SCH ×2 (08:20→19:42)
[2017-10-04 11:30] VITALS: BP 112/60
[2017-10-04 15:38] VITALS: BP 134/70
[2017-10-04] MEDS: ONDANSETRON HCL 4 MG/2 ML VIAL IVP PRN (16:58)
[2017-10-04] MEDS: MIRTAZAPINE 30 MG TABLET PO SCH (19:41)
[2017-10-04 20:47] VITALS: BP 126/57
[2017-10-04 23:26] VITALS: BP 102/55
[2017-10-05 03:15] VITALS: BP 98/48
[2017-10-05 06:21] LABS: ANION GAP 7 mmol/L (8-16); CALCIUM, TOTAL 8.9 mg/dL (8.8-10.5); CHLORIDE 109 mmol/L (98-107); CREATININE 0.98 mg/dL (0.60-1.30); GLOMERULAR FILTR. RATE CALC > 60 mL/min (>60); GLUCOSE,RANDOM 113 mg/dL (70-110); SODIUM SERUM 142 mmol/L (136-145); UREA NITROGEN, BLOOD 20 mg/dL (7-18)
[2017-10-05 06:45] LABS: CARBON DIOXIDE 26 mmol/L (22-29); POTASSIUM 3.3 mmol/L (3.5-5.1)
[2017-10-05 07:51] LABS: BASOPHILS % (AUTO) 0.4 % (0.0-2.0); EOSINOPHILS % (AUTO) 4.6 % (1.0-6.0); HEMATOCRIT 31.3 % (41-53); LYMPHOCYTES # (AUTO) 2.1 K/uL (1.0-4.8); LYMPHOCYTES % (AUTO) 40.3 % (22.0-44.0); MEAN CORPUSCULAR HEMOGLOBIN 32.7 pg (26.0-34.0); MEAN CORPUSCULAR VOLUME 93 fL (80-100); MONOCYTES # (AUTO) 0.4 K/uL (0.1-1.0); MONOCYTES % (AUTO) 7.6 % (2.0-9.0); NEUTROPHILS # (AUTO) 2.4 K/uL (1.8-7.7); NEUTROPHILS % (AUTO) 47.1 % (40.0-70.0); RED BLOOD CELL COUNT(AUTO) 3.36 MIL/uL (4.50-5.90); RED CELL DISTRIBUTION WIDTH 16.9 % (11.5-14.5)
[2017-10-05 07:52] VITALS: BP 105/55
[2017-10-05 08:16] LABS: PLATELET COUNT (AUTO) 56 K/uL (150-450)
[2017-10-05] MEDS: METOPROLOL TARTRATE 25 MG TABLET PO SCH ×2 (08:36→20:53)
[2017-10-05] MEDS: THIAMINE HCL 100 MG TABLET PO SCH ×2 (08:42→20:53)
[2017-10-05] MEDS: FOLIC ACID 1 MG TABLET PO SCH (08:42)
[2017-10-05] MEDS: POTASSIUM CHLORIDE 20 MEQ ER TABLET PO PRN (08:42)
[2017-10-05] MEDS: MULTIVITAMINS WITH MINERALS, THERAPEUTIC TABLET PO SCH (08:42)
[2017-10-05] MEDS: ONDANSETRON HCL 4 MG/2 ML VIAL IVP PRN (08:44)
[2017-10-05] MEDS: HYDROCODONE/ACETAMINOPHEN 5-325 MG TABLET PO PRN ×2 (08:44→20:58)
[2017-10-05] MEDS: VANCOMYCIN HCL 1 GM/D5% WATER 200 ML IV SCH ×3 (08:53→23:33)
[2017-10-05] MEDS: HALOPERIDOL 5 MG TABLET PO PRN ×2 (09:00→16:28)
[2017-10-05 11:28] VITALS: BP 105/62
[2017-10-05 19:45] VITALS: BP 120/56
[2017-10-05] MEDS: MIRTAZAPINE 30 MG TABLET PO SCH (20:53)
[2017-10-05 23:32] VITALS: BP 114/61
[2017-10-06 05:00] VITALS: BP 116/81
[2017-10-06 07:25] VITALS: BP 101/56
[2017-10-06] MEDS: VANCOMYCIN HCL 1 GM/D5% WATER 200 ML IV SCH (08:50)
[2017-10-06] MEDS: FOLIC ACID 1 MG TABLET PO SCH (08:50)
[2017-10-06] MEDS: MULTIVITAMINS WITH MINERALS, THERAPEUTIC TABLET PO SCH (08:50)
[2017-10-06] MEDS: THIAMINE HCL 100 MG TABLET PO SCH (08:50)
[2017-10-06] MEDS: METOPROLOL TARTRATE 25 MG TABLET PO SCH (08:50)
[2017-10-06] MEDS: HALOPERIDOL 5 MG TABLET PO PRN (08:51)
[2017-10-06 09:14] LABS: ANION GAP 9 mmol/L (8-16); CALCIUM, TOTAL 8.9 mg/dL (8.8-10.5); CARBON DIOXIDE 25 mmol/L (22-29); CHLORIDE 110 mmol/L (98-107); CREATININE 0.92 mg/dL (0.60-1.30); GLOMERULAR FILTR. RATE CALC > 60 mL/min (>60); GLUCOSE,RANDOM 132 mg/dL (70-110); POTASSIUM 3.5 mmol/L (3.5-5.1); SODIUM SERUM 144 mmol/L (136-145); UREA NITROGEN, BLOOD 20 mg/dL (7-18)
== END 2017-10-06 10:09 | disposition left against medical advice (07) | DRG 540 ==
LOC: 6N 20:15
PROVIDERS: ADMIT Internal Medicine; ATTEND Internal Medicine
DX: M86.8X3 Other osteomyelitis, forearm (principal); M00.9 Pyogenic arthritis, unspecified; R45.851 Suicidal ideations; D69.6 Thrombocytopenia, unspecified; B18.2 Chronic viral hepatitis C; E87.6 Hypokalemia; F10.20 Alcohol dependence, uncomplicated; F12.10 Cannabis abuse, uncomplicated; F17.200 Nicotine dependence, unspecified, uncomplicated; F32.9 Major depressive disorder, single episode, unspecified; F41.9 Anxiety disorder, unspecified; I10 Essential (primary) hypertension; J44.9 Chronic obstructive pulmonary disease, unspecified; K21.9 Gastro-esophageal reflux disease without esophagitis; M65.9 Synovitis and tenosynovitis, unspecified; S00.83XA Contusion of other part of head, initial encounter; M85.80 Other specified disorders of bone density and structure, unspecified site; X58.XXXA Exposure to other specified factors, initial encounter; S00.12XA Contusion of left eyelid and periocular area, initial encounter; S00.11XA Contusion of right eyelid and periocular area, initial encounter; Y93.89 Activity, other specified; Y92.89 Other specified places as the place of occurrence of the external cause; Z59.0 Homelessness; Z91.5 Personal history of self-harm; Z90.49 Acquired absence of other specified parts of digestive tract
CPT/HCPCS: 73223; 84132; 84145; 85651; 86140; 87040; 87081; A9585; J2405; J3370; J3411; J3475; J3490; J7030; J7040; J7050; J7060